=== PATIENT | male | born 1995 | race Asian ===

== ENCOUNTER 2020-11-05 14:06 | Inpatient (IN) ==
--- NOTE | 2020-11-05 14:41 | Emergency Department Note ---
History of Present Illness General Chief complaint: Mental Health Evaluation Stated complaint: MENTAL ILLNESS Time Seen by Provider: 11/05/20 14:20 Source: patient Mode of arrival: ambulatory Limitations: no limitations History of Present Illness Provider complaint: Mental health evaluation Maximum Pain Intensity: 0 This is a 25-year-old male who presents to the ED with a chief complaint of a mental health evaluation. The patient has been here for times in the past month. He was here last night for the same issues. He feels unsafe at home. He is feeling suicidal. He is thinking of either cutting himself or walking out [place] the [place] and getting lost. The patient reports also decreased appetite but otherwise no complaints. He was evaluated by [facility] and referred here. He denies having attempted to hurt himself yet but has suicidal thoughts. No additional complaints at this time. Home Medications Medication Instructions Recorded Confirmed Type hydroxyzine pamoate [Vistaril] 25 mg PO Q8H PRN 5 Days #15 cap 11/05/20 Rx lorazepam [Ativan] 0.5 mg BUCCAL HS PRN 11/05/20 11/05/20 History Allergies Allergy/AdvReac Type Severity Reaction Status Date / Time No Known Allergies Allergy Verified 11/05/20 14:42 Past Med/Surg History Medical History (Updated 11/05/20 @ 14:41 by Hussein Camp DO) GERD (gastroesophageal reflux disease) Surgical History [place] teeth extracted Family History Father Family history of diabetes mellitus Grandmother (Paternal) Family history of diabetes mellitus Grandfather (Paternal) Family history of stomach cancer Other No family history of adverse response to anesthesia Social History Smoking Status: Never smoker Second Hand Exposure: No; Hx Alcohol Use: No Hx Substance Use: No Preferred Language: Romanian Communication Ability: Effective Ship Ceiler Required: No Beliefs That Will Affect Care: None marital status: Single Current Living Situation: Other Current Living Situation Comment: Lives with roommate current occupational status: student Feels Safe at Home: Yes Assistive Devices: Glasses Review of Systems A total of 10 systems reviewed and were otherwise negative Physical Exam Vital Signs Vital Signs - 24 hr 11/05/20 14:08 Temperature 36.4 C L Temperature Source Oral Pulse Rate 89 Respiratory Rate 16 Blood Pressure 139/91 Blood Pressure Mean 107 Pulse Oximetry 100 Oxygen Delivery Method Room Air Sepsis Recent Fever Within 48 Hours No Sepsis New/Unexplained Change in Mental Status N/A Sepsis Action Taken by Nursing No Action Required CONSTITUTIONAL/VITAL SIGNS: Reviewed / noted above. GENERAL: Non-toxic in appearance. INTEGUMENTARY: Warm, dry, and [place]. HEAD: Normocephalic. EYES: without scleral icterus or trauma. ENT/OROPHARYNX: clear and moist. LYMPHADENOPATHY/NECK: Is supple without lymphadenopathy or meningismus. RESPIRATORY: Lungs clear and equal. CARDIOVASCULAR: Regular rate and rhythm. GI/ABDOMEN: Soft and nontender. No organomegaly or pulsatile mass. No rebound or guarding. Normal bowel sounds. EXTREMITIES: Warm and well perfused. BACK: No CVA tenderness. NEUROLOGICAL: Intact without focal deficits. PSYCHIATRIC: normal affect. Exposure suicidal ideation MUSCULOSKELETAL: Normally developed with good muscle tone. TRIAGE NURSING DOCUMENTATION REVIEWED. Medical Decision Making Differential Diagnosis Differential includes toxic ingestions, self-mutilation, suicidal ideation, suicide attempt, depression. Medical Records Attestation: I reviewed the patient's medical records. Home Medications Current Medication List: was personally reviewed by me Laboratory Data Attestation: I reviewed the patient's lab results. Lab Results 11/05/20 11/05/20 11/05/20 Range/Units 14:15 14:27 14:27 Salicylates < 1.7 L (2.8-20) mg/dl Urine Opiates Screen Neg (Neg) Ur Methadone, Qual Neg (Neg) Acetaminophen < 2 L (10-30) ug/ml Urine Barbiturates Neg (Neg) Ur Phencyclidine (PCP) Neg (Neg) U Amphetamin/Meth Scrn Neg (Neg) MDMA (Ecstasy) Screen Neg (Neg) U Benzodiazepines Scrn Neg (Neg) Ur Cocaine Metabolite Neg (Neg) U Marijuana (THC) Screen Neg (Neg) Ethyl Alcohol mg/dL < 3.0 (0-3) mg/dl COVID-19 Eval Order SARS-CoV-2, RNA, NAAT (NEGATIVE) 11/05/20 11/05/20 Range/Units 15:35 15:35 Salicylates (2.8-20) mg/dl Urine Opiates Screen (Neg) Ur Methadone, Qual (Neg) Acetaminophen (10-30) ug/ml Urine Barbiturates (Neg) Ur Phencyclidine (PCP) (Neg) U Amphetamin/Meth Scrn (Neg) MDMA (Ecstasy) Screen (Neg) U Benzodiazepines Scrn (Neg) Ur Cocaine Metabolite (Neg) U Marijuana (THC) Screen (Neg) Ethyl Alcohol mg/dL (0-3) mg/dl COVID-19 Eval Order Covid19 IDNow [facility] SARS-CoV-2, RNA, NAAT NEGATIVE (NEGATIVE) MDM Narrative Patient presents for the fourth time this month and a twice time in 2 days for mental health evaluation. He feels unsafe at home. He feels suicidal. Exam was unremarkable. He has not attempted to hurt himself yet. Laboratory studies have been reviewed. The patient is medically cleared for mental health evaluation and/or admission. He was accepted to 3 [facility]. Impression & Plan Suicidal ideation Discharge Plan Visit Data Chief Complaint: Mental Health Evaluation Stated Complaint: MENTAL ILLNESS ED Provider: Hussein Camp Discharge Problem: Suicidal ideation Forms Stand Alone Forms: [facility], Suicide Prevention Resources Prescriptions Prescriptions: No Action lorazepam [Ativan] 0.5 mg tablet 0.5 mg buccal HS PRN (Reason: panic attack(s)) RF: 0 hydroxyzine pamoate [Vistaril] 25 mg capsule 25 mg PO Q8H PRN (Reason: anxiety) 5 Days Qty: 15 RF: 0 Referrals [facility]: [facility] [Primary Care Provider] -
[2020-11-05 14:46] LABS: Amphetamines+Metham, Urine Neg (Neg); Barbiturates, Urine Neg (Neg); Benzodiazepine, Urine Neg (Neg); Cocaine, Urine Neg (Neg); MDMA (Ecstacy), Urine Neg (Neg); Methadone, Urine Neg (Neg); Opiate, Urine Neg (Neg); Phencyclidine, Urine Neg (Neg)
[2020-11-05 15:01] LABS: Acetaminophen < 2 ug/ml (10-30); Salicylate < 1.7 mg/dl (2.8-20)
--- NOTE | 2020-11-05 15:39 | XRay Report ---
XR chest 1V portable CLINICAL HISTORY: Cough. SHORTNESS OF BREATH COMPARISON STUDY: No previous studies for comparison. FINDINGS: The cardiac and mediastinal contours are normal. There is no evidence of focal pulmonary co nsolidation. There is no evidence of failure. No pleural effusions are visualized.[ IMPRESSION: No active disease in the chest. ACT 112: Negative or not required by law. Electronically signed by: Michael Maloney M.D. 11/05/2020 3:37 PM
[2020-11-05] MEDS ORDERED: ACETAMINOPHEN 325 MG TAB PO PRN (16:43)
[2020-11-05] MEDS ORDERED: SODIUM CHLORIDE 0.65% NA SOLN 45 ML (OCEAN) PRN (16:43)
[2020-11-05] MEDS ORDERED: ALUMINUM/MAGNESIUM SUSP 30 ML UDC PO PRN (16:43)
[2020-11-05] MEDS ORDERED: BISMUTH SUBSALICYLATE LIQD 236 ML PO PRN (16:43)
[2020-11-05] MEDS ORDERED: MAGNESIUM HYDROXIDE SUSP 30 ML UDC PO PRN (16:43)
[2020-11-05] MEDS: hydrOXYzine HCl 25 MG TAB PO PRN (21:55)
[2020-11-06] MEDS: hydrOXYzine HCl 25 MG TAB PO PRN ×2 (04:50→22:29)
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
[2020-11-06] MEDS ORDERED: SERTRALINE HCL 50 MG TABLET PO ONE (10:23)
[2020-11-07] MEDS: hydrOXYzine HCl 25 MG TAB PO PRN (00:39)
[2020-11-07] MEDS: SERTRALINE HCL 50 MG TABLET PO SCH (08:42)
--- NOTE | 2020-11-07 11:46 | Psychiatric Progress Note ---
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 Inpatient treatment is medically necessary due to the severity of symptoms and risk for suicide if discharged. (1) Suicidal ideation: 11/06 -continue voluntary inpatient treatment, every 15 minute checks for safety, encourage group attendance and participation, work on healthy coping skills and discharge safety plan. -Family meeting with parents scheduled for 11/07/2020. -Coordinate with [facility]/[place]. 11/07 -suicidal thoughts worsened after a difficult family meeting. He does feel safe on the unit, and agrees to come to staff if he is having urges to hurt himself. (2) Depression: 11/06 - Reviewed diagnoses and treatment recommendations, including antidepressant and therapy. Discussed a trial of sertraline, reviewed risks, benefits, and side effects. He agreed to a trial, started 25mg today and 50mg tomorrow, will titrate to an effective dose. - Family meeting with parents scheduled for tomorrow. - Refer for outpatient treatment. 11/07 -continue sertraline titration, increased to 50 mg daily today. Provide support after a difficult family meeting. Encourage group attendance and participation. Continue to provide psychoeducation about his diagnosis and treatment recommendations. - Discharge planning: Exploring options for outpatient psychiatry and therapy. (3) Anxiety: 11/06 - Symptoms of JESUS, rule out PTSD. Start SSRI as above, hydroxyzine prn. 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 Chief Complaint "Really bad". Review of Systems Sleep Information Total Hours of Sleep: 5.5 Meal Information Percent Meal Consumed - Breakfast: 100 Percent Meal Consumed - Lunch: 100 Percent Meal Consumed - Dinner: 100 Subjective Subjective Patient was seen & assessed and interval progress reviewed with treatment team. Staff report patient attended groups yesterday and was reporting improved mood, but had a very difficult family meeting with his parents and the certified social workers in health care this morning, after which he reported return of suicidal thoughts. On my assessment, he states that the meeting with his parents was very difficult and that he has decided that they are "both toxic," and that he probably needs to distance himself from both of them. He feels very hurt by their behavior, hopeless that things will ever get better for him, asking if his condition is really treatable, and if it is not, he like to stop all treatment immediately. He says the part of him would like to just leave the hospital and end his life, but part of him still wants to keep living. He describes being in "a very dark space," and not knowing how to get out of it. He says it helps to talk with staff/counselors one-on-one, and feels safe in the hospital. Physical Exam Psychiatric Orientation: alert and cooperative Apperance: appropriately dressed, appropriately groomed and appeared stated age Wearing scrub pants and a sweater. Seated in no acute distress, looking out the window. Eye Contact: good eye contact Motor Behavior: steady gait and station and no abnormal motor movements Speech: normal rate/rhythm/volume of speech Affect: + depressed affect, + constricted affect and mood congruent with affect Mood: + depressed mood Thought Process: goal directed thought process Thought Content: + cognitive distortions Suicidal Thoughts: + reports suicidal thoughts Homicidal Thoughts: denies homicidal thoughts Hallucinations: no auditory hallucinations Cognition: recent memory grossly intact, attention grossly intact and language grossly intact Estimated Intelligence: consistent with education level Insight: + fair insight Judgement: + fair judgement Vital Signs (Past 24 Hours) Last Vital Signs Temp 36.7 C 11/07/20 06:31 Pulse 89 11/07/20 06:32 Resp 16 11/07/20 06:31 BP 131/84 11/07/20 06:32 Pulse Ox 100 11/05/20 14:08 Results & Data ([facility]) Current Inpatient Medications Current Inpatient Medications: Current Inpatient Medications Acetaminophen (Acetaminophen 325 Mg Tab) 650 mg PO Q4H PRN PRN Reason: Headache or Minor Fever Stop: 12/05/20 16:42 Al Hydrox/Mg Hydrox/Simethicone (Aluminum/Magnesium Susp 30 Ml Udc) 30 ml PO Q4H PRN PRN Reason: GI Upset Stop: 12/05/20 16:42 Bismuth Subsalicylate (Bismuth Subsalicylate Liqd 236 Ml) 15 ml PO PRN PRN PRN Reason: Loose Stool Stop: 12/05/20 16:42 Hydroxyzine HCl (Hydroxyzine Hcl 25 Mg Tab) 50 mg PO HSZ PRN PRN Reason: Insomnia Stop: 12/05/20 16:42 Last Admin: 11/07/20 00:39 Dose: 50 mg Documented by: Hydroxyzine HCl (Hydroxyzine Hcl 25 Mg Tab) 25 mg PO Q4H PRN PRN Reason: Anxiety Stop: 12/05/20 16:42 Last Admin: 11/06/20 04:50 Dose: 25 mg Documented by: Magnesium Hydroxide (Magnesium Hydroxide Susp 30 Ml Udc) 30 ml PO DAILY PRN PRN Reason: Constipation Stop: 12/05/20 16:42 Sertraline HCl (Sertraline Hcl 50 Mg Tablet) 50 mg PO QAM SHARON Stop: 12/07/20 08:59 Last Admin: 11/07/20 08:42 Dose: 50 mg Documented by: Sodium Chloride (Sodium Chloride 0.65% Na Soln 45 Ml ([place])) 1 - 2 sprays NA PRN PRN PRN Reason: Nasal Dryness/Congestion Stop: 12/05/20 16:42 Mental Health & Subst Abuse Tx Therapist Name of Therapist: DOMI, one time visit then sent to ER Post Discharge Appointments Primary Care Physician Name Of Family Doctor: SHAHBAZ (1) Depression Depression Type: unspecified Qualified Code(s): F32.9 - Major depressive disorder, single episode, unspecified
[2020-11-08] MEDS: SERTRALINE HCL 50 MG TABLET PO SCH (07:44)
--- NOTE | 2020-11-08 09:39 | Psychiatric Progress Note ---
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 Inpatient treatment is medically necessary due to the severity of symptoms and risk for suicide if discharged. (1) Suicidal ideation: 11/06 -continue voluntary inpatient treatment, every 15 minute checks for safety, encourage group attendance and participation, work on healthy coping skills and discharge safety plan. -Family meeting with parents scheduled for 11/07/2020. -Coordinate with [facility]/[place]. 11/07 -suicidal thoughts worsened after a difficult family meeting. He does feel safe on the unit, and agrees to come to staff if he is having urges to hurt himself. 11/08 - Pt denies SI today, but he continues to be emotionally reactive which increased concern for destabilization - Continue to monitor mood and SI - Will encourage a support meeting and completion of a safety plan (2) Depression: 11/06 - Reviewed diagnoses and treatment recommendations, including antidepressant and therapy. Discussed a trial of sertraline, reviewed risks, benefits, and side effects. He agreed to a trial, started 25mg today and 50mg tomorrow, will titrate to an effective dose. - Family meeting with parents scheduled for tomorrow. - Refer for outpatient treatment. 11/07 -continue sertraline titration, increased to 50 mg daily today. Provide support after a difficult family meeting. Encourage group attendance and participation. Continue to provide psychoeducation about his diagnosis and treatment recommendations. - Discharge planning: Exploring options for outpatient psychiatry and therapy. 11/08 - Titrating sertraline to 100mg daily starting tomorrow morning - continue to have hydroxyzine available as needed for anxiety. - Pt has been reaching out to local supports, attempting to set boundaries with parents - Pt denies SI today, but continues to be rather emotionally reactive (3) Anxiety: 11/06 - Symptoms of JESUS, rule out PTSD. Start SSRI as above, hydroxyzine prn. 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 Chief Complaint "Um, I feel good about myself. I have been reaching out to people." Review of Systems Notes Constitutional: denied Cardiovascular: denied Respiratory: denied Gastrointestinal: reports mild nausea Neurological: denied Psychiatric: denies symptoms other than stated above Total of at least 10 systems reviewed, pertinent positives as above and in HPI. Sleep Information Total Hours of Sleep: 5.5 Meal Information Percent Meal Consumed - Breakfast: 100 Percent Meal Consumed - Lunch: 100 Percent Meal Consumed - Dinner: 100 Subjective Subjective Patient was seen & assessed and interval progress reviewed with nursing and social work. Staff report the patient has been participating in group programming and seems to be benefitting greatly from treatment. He did have a difficult family meeting with his parents yesterday, and became acute suicidal due to poor relationship with his parents. Pt was able to process with staff and was reassured. He was encouraged to reach out to local friends/supports. He was reportedly receiving positive responses last evening. Pt was seen today to assess progress since admission. The patient admits "I feel good about myself. I have been reaching out to people." Pt admits he is happy with the positive responses he has received from friends but is also worried about being seen as a burden. We discussed how patient thought he might respond if the roles were reversed. He admits that he would reach out to his friends and be supportive of them. Pt states that he is aware he will need to set boundaries with his parents and is worried about how to do this. We discussed the level of interaction that he feels is appropriate at this time and he states "I think it definitely needs to be very limited. I need to focus on me and my goals." We reviewed some simple phrases the patient could use to politely change conversation topics or to end a phone interaction if he felt he needed to. Pt states that he has not had suicidal ideation thus far today, but is worried that they might come back. He does hope to keep close track of his mood and SI on a daily basis "so I know when I need to call 911 or call a friend or just do something to take my mind off of it." Pt does feel that he is getting better, but is not yet able to contract for safety outside of the hospital setting. He is agreeable with titrating his dose of sertraline to 100mg tomorrow morning. He denied other needs or concerns today. Physical Exam Psychiatric Orientation: alert, oriented x 3 and cooperative Apperance: appropriately dressed, appropriately groomed and appeared stated age Eye Contact: good eye contact Motor Behavior: steady gait and station and no abnormal motor movements Speech: normal rate/rhythm/volume of speech Affect: + depressed affect and mood congruent with affect Mood: + depressed mood (but admits mood is improved from yesterday, much worse after family meeting) Thought Process: goal directed thought process, clear/coherent thought process and thought association intact Thought Content: reality based without delusions; no hopelessness Suicidal Thoughts: denies suicidal thoughts and denies suicidal intent Pt admits to strong SI yesterday following the family meeting - denies SI so far today, but continues to be emotionally reactive Homicidal Thoughts: denies homicidal thoughts Hallucinations: no auditory hallucinations and no visual hallucinations Cognition: attention grossly intact and language grossly intact Estimated Intelligence: consistent with education level Insight: + fair insight Judgement: + fair judgement Vital Signs (Past 24 Hours) Last Vital Signs Temp 36.8 C 11/08/20 06:43 Pulse 83 11/08/20 06:44 Resp 16 11/08/20 06:43 BP 121/77 11/08/20 06:44 Pulse Ox 100 11/05/20 14:08 Results & Data ([facility]) Current Inpatient Medications Current Inpatient Medications: Current Inpatient Medications Acetaminophen (Acetaminophen 325 Mg Tab) 650 mg PO Q4H PRN PRN Reason: Headache or Minor Fever Stop: 12/05/20 16:42 Last Admin: 11/08/20 07:46 Dose: 650 mg Documented by: Al Hydrox/Mg Hydrox/Simethicone (Aluminum/Magnesium Susp 30 Ml Udc) 30 ml PO Q4H PRN PRN Reason: GI Upset Stop: 12/05/20 16:42 Bismuth Subsalicylate (Bismuth Subsalicylate Liqd 236 Ml) 15 ml PO PRN PRN PRN Reason: Loose Stool Stop: 12/05/20 16:42 Hydroxyzine HCl (Hydroxyzine Hcl 25 Mg Tab) 50 mg PO HSZ PRN PRN Reason: Insomnia Stop: 12/05/20 16:42 Last Admin: 11/07/20 00:39 Dose: 50 mg Documented by: Hydroxyzine HCl (Hydroxyzine Hcl 25 Mg Tab) 25 mg PO Q4H PRN PRN Reason: Anxiety Stop: 12/05/20 16:42 Last Admin: 11/06/20 04:50 Dose: 25 mg Documented by: Magnesium Hydroxide (Magnesium Hydroxide Susp 30 Ml Udc) 30 ml PO DAILY PRN PRN Reason: Constipation Stop: 12/05/20 16:42 Sertraline HCl (Sertraline Hcl 50 Mg Tablet) 50 mg PO QAM SHARON Stop: 12/07/20 08:59 Last Admin: 11/08/20 07:44 Dose: 50 mg Documented by: Sodium Chloride (Sodium Chloride 0.65% Na Soln 45 Ml ([place])) 1 - 2 sprays NA PRN PRN PRN Reason: Nasal Dryness/Congestion Stop: 12/05/20 16:42 Mental Health & Subst Abuse Tx Psychiatrist Name of Psychiatrist: DOMI Psychiatrist's Psychiatric Appointment Comment: Virtual - will email you with directions to the link Therapist Name of Therapist: [facility] Therapist's Therapy Appointment Comment: Virtual - will email you with directions to the link Post Discharge Appointments Primary Care Physician Name Of Family Doctor: [facility] Primary Care Time of Appointment with PCP: Please follow up as needed Provider Appointment Comment: [facility] Contact Information Discharge Discharge Address: [address] [place] [address], [address] [place] [address] (1) Depression Depression Type: unspecified Qualified Code(s): F32.9 - Major depressive disorder, single episode, unspecified
[2020-11-09] MEDS: SERTRALINE HCL 100 MG TABLET PO SCH (08:36)
--- NOTE | 2020-11-09 17:47 | Psychiatric Progress Note ---
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 Inpatient treatment is medically necessary due to the severity of symptoms and risk for suicide if discharged. The patient is surprisingly adept at insight, and I believe would do quite well with a cognitive behavioral therapist. As noted elsewhere in today's progress note, the patient was given an example of a "thought distortion" that might be challenged in cognitive behavioral therapy. The example of a possible distortion was, "Because my mother is a narcissist, my mother does not love me." The patient immediately replied, "Or, because my mother is a narcissist and does not love me I should . That is a distortion also, is not that?" We were able to discuss the concept of felt like ornaments, the psychodynamic variables present in narcissistic individuals, as well as the fact that persons with certain pathologic character structures are still perfectly capable of love, but within the confines of certain limits. He is able to be redirected to focus on ways that he might accept his mother's limitations, and his father's limitations, and still go on to have a happy, fulfilling life. The patient also does seem to be concerned about his academic performance. He is in his last semester and essentially only has to defend his dissertation before he can be granted a PhD at [employer]. He told me with some pleasure that his department has already indicated that they will work with him to give him an extension on his stipend and on his student visa. (1) Suicidal ideation: 11/06 -continue voluntary inpatient treatment, every 15 minute checks for safety, encourage group attendance and participation, work on healthy coping skills and discharge safety plan. -Family meeting with parents scheduled for 11/07/2020. -Coordinate with [facility]University. 11/07 -suicidal thoughts worsened after a difficult family meeting. He does feel safe on the unit, and agrees to come to staff if he is having urges to hurt himself. 11/08 - Pt denies SI today, but he continues to be emotionally reactive which increased concern for destabilization - Continue to monitor mood and SI - Will encourage a support meeting and completion of a safety plan 11/09 -The patient continues to say that he is having thoughts of suicide. He notes that he is able to contract for safety in the hospital, but is concerned that he will be safe at the present time if he leaves the hospital because of ongoing depression and ongoing emotional pain associated with issues specific to his relationship with his parents. -The patient needs greater and broader emotional support. It is clear that he finds the hospital to be a source of support, and today's encounter focused largely on how he can see his current situation as a circumscribed, "bedtime," and come to realize, he either intellectually or emotionally, that things will get better and that he will look back on this time and wonder why he reacted in the way he has. (2) Depression: 11/06 - Reviewed diagnoses and treatment recommendations, including antidepressant and therapy. Discussed a trial of sertraline, reviewed risks, aylin efits, and side effects. He agreed to a trial, started 25mg today and 50mg tomorrow, will titrate to an effective dose. - Family meeting with parents scheduled for tomorrow. - Refer for outpatient treatment. 11/07 -continue sertraline titration, increased to 50 mg daily today. Provide support after a difficult family meeting. Encourage group attendance and participation. Continue to provide psychoeducation about his diagnosis and treatment recommendations. - Discharge planning: Exploring options for outpatient psychiatry and therapy. 11/08 - Titrating sertraline to 100mg daily starting tomorrow morning - continue to have hydroxyzine available as needed for anxiety. - Pt has been reaching out to local supports, attempting to set boundaries with parents - Pt denies SI today, but continues to be rather emotionally reactive 11/09 -Patient complained of feeling depressed today and mentioned that he still does not feel safe to leave the hospital without a recurrence of his suicidal tho ughts and active risk of suicidality outside the hospital. However, his affect brightened considerably during today's encounter and he is now more focused on recovery and on his future. For example, he is discussing what sort of marriage he would like and what kind of father he would like to be "down the road." The patient also talks about ways that he might manage the "toxicity" of his relatio nship with his parents, and he has said is the goal the hope of living in the [facility] and having his career here. -Patient indicates that he is tolerating Zoloft well. Present on Admission?: Yes (3) Anxiety: 2/16 - Symptoms of JESUS, rule out PTSD. Start SSRI as above, hydroxyzine prn. Present on Admission?: Yes Inventory Assets Strengths: Intelligent. Insightful. Would make an excellent candidate for insight oriented psychotherapy as well as cognitive behavioral therapies. Pleasant and winning personality. Motivated to recovery. Needs: Improved self-esteem. Further insight development. And improved social network locally. Resolution of suicidality. Improvement in depressed mood. Risk Factors Assessment History of depression. Suicidal thoughts. Somewhat lacking social supports. Male: Yes : No Do You Have Access To A Gun?: No Health Problems: No Mental Health Diagnoses: Yes Substance Use Disorders: No Previous Attempt: No Previous Attempt; Highly Lethal: No Family History of Suicide: No Previous Psychiatric Hospitalization: No Hopelessness: Yes Smoker: No Protective Factors Assessment Amish Beliefs: No : No Responsible for Young Children: No Employed: No Stable Relationships: No Supportive Family: No Good Rapport with Provider: No (The patient quickly developed a good rapport with the undersigned today.) Absence of Any Risk Factors Above: No Interval History Identifying Information THERESA FRAUSTO is a 25-year-old 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 Chief Complaint "[]". Review of Systems Sleep Information Total Hours of Sleep: 4.75 Sleep Comments: pt BABATUNDE @0445 and thereafter. pt on q-15 minute checks Meal Information Percent Meal Consumed - Breakfast: 100 Percent Meal Consumed - Lunch: 100 Percent Meal Consumed - Dinner: 100 Subjective Subjective Patient was seen & assessed and interval progress reviewed with treatment team. I met individually with the patient in order to assess his current mental status; evaluate his response to treatment; coordinate any necessary changes in the patient's treatment regimen together with the patient; and address questions, issues and concerns that may arise. The patient began by telling me that he feels "safe" in the hospital," but does not believe that he is safe to leave the hospital because of ongoing suicidal thoughts and "emotional pain" associated with his relationship with his parents. He explains that his father recently told him that the patient's mother "does not love [him]." The patient describes his mother as "a narcissist," and suggest that his father may be somewhat of a masochist --although he does not exactly use that word. He reports that the family dynamic is that the patient's father's mother was also narcissistic and verbally abusive to him, and he, the father, made the mistake of marrying a woman who had a similar personality construct to his own mother. At the same time, the patient believes that he was groomed by his mother to become very messed with her and to live in fear of being rejected by her. He says that over the years his mother has repeatedly said things such as "nobody will ever love you the way I love you," and "you will never have a relationship with anyone that is important as you relationship with me." At the same time, the patient's mother is often verbally dismissive, with holding, and, the patient view, uses her power over him to control his behavior. The patient says that despite insight into the "toxic" nature of his parents' relationship with each other, and with the patient, he says that his emotions have not necessarily followed his head and that his insight is not really helping with what he refers to as his "heart pain" associated with recognizing that neither of his parents love him in the way that he would like to be loved; i.e. for himself, rather than as a phallic ornament. The patient tells me that had never heard of cognitive behavioral therapy, and when I described to him and used as an example, "my mother does not love me" as an example of a possible distortion that would be challenging cognitive behavioral therapy, he immediately said, "not just that my mother does not love me, but my belief that I should if my mother does not love me. Is that right?" I advised the patient that I think that he would be an excellent candidate for cognitive behavioral therapy and I talked to him about the need to avoid self-harm while passing through what is quite understandably a very difficult time for himself. I tried to frame this as "a bad time" that has its boundaries and will get better. He talked about how hurtful it was to realize that his parents may not love him in the way that he would like to be loved, and I used the expression "the best revenge is success." The patient understood and we spent a fair amount of time discussing what success would mean for him. He quickly said, "to break the pattern so that I do not a narcissist. I have noticed that the women who seem interested in me often seek to control and manipulate me, and so part of what I need to do is find a relationship with a woman who will be my equal partner." The patient also said that a goal for him that he thinks will be healing is to and become a father himself so that he can break the cycle that was part of his parents marriage and interaction with their son, i.e. the patient. Physical Exam Psychiatric Orientation: alert, oriented x 3 and cooperative Apperance: appropriately dressed, appropriately groomed and appeared stated age Eye Contact: + fair eye contact Motor Behavior: steady gait and station Speech: normal rate/rhythm/volume of speech The patient's affect was initially depressed, but brightened considerably during the course of today's encounter. Mood: + depressed mood However, the patient reports that his mood brightened considerably during the encounter. Thought Process: goal directed thought process, linear/logical thought process and clear/coherent thought process Thought Content: reality based without delusions Suicidal Thoughts: + reports suicidal thoughts Patient reports that he has ongoing thoughts of suicide, but contracts for safety on the unit. He says that he does not believe that he can be safe outside of the hospital because of ongoing depression and suicidality. Homicidal Thoughts: denies homicidal thoughts Hallucinations: no auditory hallucinations and no visual hallucinations Cognition: recent memory grossly intact, remote memory grossly intact, attention grossly intact and language grossly intact Estimated Intelligence: + above average estimated intelligence The patient is command of Greek is excellent. He understand it he him and is able to correctly perform interpretation of proverbs that he has never heard before. He also is able to grasp abstract concepts assiduously Insight: good insight Judgement: + fair judgement Vital Signs (Past 24 Hours) Last Vital Signs Temp 36.6 C 11/09/20 06:50 Pulse 78 11/09/20 06:50 Resp 16 11/09/20 06:50 BP 126/78 11/09/20 06:50 Pulse Ox 100 11/05/20 14:08 Results & Data ([facility]) Current Inpatient Medications Current Inpatient Medications: Current Inpatient Medications Acetaminophen (Acetaminophen 325 Mg Tab) 650 mg PO Q4H PRN PRN Reason: Headache or Minor Fever Stop: 12/05/20 16:42 Last Admin: 11/08/20 07:46 Dose: 650 mg Documented by: Al Hydrox/Mg Hydrox/Simethicone (Aluminum/Magnesium Susp 30 Ml Udc) 30 ml PO Q4H PRN PRN Reason: GI Upset Stop: 12/05/20 16:42 Bismuth Subsalicylate (Bismuth Subsalicylate Liqd 236 Ml) 15 ml PO PRN PRN PRN Reason: Loose Stool Stop: 12/05/20 16:42 Hydroxyzine HCl (Hydroxyzine Hcl 25 Mg Tab) 50 mg PO HSZ PRN PRN Reason: Insomnia Stop: 12/05/20 16:42 Last Admin: 11/07/20 00:39 Dose: 50 mg Documented by: Hydroxyzine HCl (Hydroxyzine Hcl 25 Mg Tab) 25 mg PO Q4H PRN PRN Reason: Anxiety Stop: 12/05/20 16:42 Last Admin: 11/06/20 04:50 Dose: 25 mg Documented by: Magnesium Hydroxide (Magnesium Hydroxide Susp 30 Ml Udc) 30 ml PO DAILY PRN PRN Reason: Constipation Stop: 12/05/20 16:42 Sertraline HCl (Sertraline Hcl 100 Mg Tablet) 100 mg PO QAM SHARON Stop: 12/09/20 08:59 Last Admin: 11/09/20 08:36 Dose: 100 mg Documented by: Sodium Chloride (Sodium Chloride 0.65% Na Soln 45 Ml ([place])) 1 - 2 sprays NA PRN PRN PRN Reason: Nasal Dryness/Congestion Stop: 12/05/20 16:42 Mental Health & Subst Abuse Tx Psychiatrist Name of Psychiatrist: DOMI Alfaro Psychiatrist's Date of Appointment with Psychiatrist: 11/15/20 Time of Appointment with Psychiatrist: 1:15 pm Psychiatric Appointment Comment: Virtual - will email you with directions to the link Therapist Name of Therapist: Jaime Meehan Therapist's Date of Therapist Appointment: 11/13/20 Time of Therapist Appointment: 3:00 p.m. Therapy Appointment Comment: Virtual - will email you with directions to the link Post Discharge Appointments Primary Care Physician Name Of Family Doctor: [facility] Time of Appointment with PCP: Please follow up as needed Provider Appointment Comment: [facility] Contact Information Discharge Discharge Address: [address] [place] [address], [address], [place] [id number] (1) Depression Depression Type: unspecified Qualified Code(s): F32.9 - Major depressive dis order, single episode, unspecified
[2020-11-10] MEDS: SERTRALINE HCL 100 MG TABLET PO SCH (08:07)
--- NOTE | 2020-11-10 09:50 | Psychiatric Progress Note ---
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 Inpatient treatment is medically necessary due to the severity of symptoms and risk for suicide if discharged. The patient is surprisingly adept at insight, and I believe would do quite well with a cognitive behavioral therapist. As noted elsewhere in today's progress note, the patient was given an example of a "thought distortion" that might be challenged in cognitive behavioral therapy. The example of a possible distortion was, "Because my mother is a narcissist, my mother does not love me." The patient immediately replied, "Or, because my mother is a narcissist and does not love me I should . That is a distortion also, is not that?" We were able to discuss the concept of felt like ornaments, the psychodynamic variables present in narcissistic individuals, as well as the fact that persons with certain pathologic character structures are still perfectly capable of love, but within the confines of certain limits. He is able to be redirected to focus on ways that he might accept his mother's limitations, and his father's limitations, and still go on to have a happy, fulfilling life. The patient also does seem to be concerned about his academic performance. He is in his last semester and essentially only has to defend his dissertation before he can be granted a PhD at [employer]. He told me with some pleasure that his department has already indicated that they will work with him to give him an extension on his stipend and on his student visa. Reviewed 11/10. Improving. (1) Suicidal ideation: 11/06 -continue voluntary inpatient treatment, every 15 minute checks for safety, encourage group attendance and participation, work on healthy coping skills and discharge safety plan. -Family meeting with parents scheduled for 11/07/2020. -[facility]ordinate with [facility]. 11/07 -suicidal thoughts worsened after a difficult family meeting. He does feel safe on the unit, and agrees to come to staff if he is having urges to hurt himself. 11/08 - Pt denies SI today, but he continues to be emotionally reactive which increased concern for destabilization - Continue to monitor mood and SI - Will encourage a support meeting and completion of a safety plan 11/09 -The patient continues to say that he is having thoughts of suicide. He notes that he is able to contract for safety in the hospital, but is concerned that he will be safe at the present time if he leaves the hospital because of ongoing depression and ongoing emotional pain associated with issues specific to his relationship with his parents. -The patient needs greater and broader emotional support. It is clear that he finds the hospital to be a source of support, and today's encounter focused largely on how he can see his current situation as a circumscribed, "bedtime," and come to realize, he either intellectually or emotionally, that things will get better and that he will look back on this time and wonder why he reacted in the way he has. 11/10--discussed chronic nature of thoughts and how to manage, need for safety plan and ongoing therapy to help with distress tolerance. (2) Depression: 11/06 - Reviewed diagnoses and treatment recommendations, including antidepressant and therapy. Discussed a trial of sertraline, reviewed risks, benefits, and side effects. He agreed to a trial, started 25mg today and 50mg tomorrow, will titrate to an effective dose. - Family meeting with parents scheduled for tomorrow. - Refer for outpatient treatment. 11/07 -continue sertraline titration, increased to 50 mg daily today. Provide support after a difficult family meeting. Encourage group attendance and participation. Continue to provide psychoeducation about his diagnosis and treatment recommendations. - Discharge planning: Exploring options for outpatient psychiatry and therapy. 11/08 - Titrating sertraline to 100mg daily starting tomorrow morning - continue to have hydroxyzine available as needed for anxiety. - Pt has been reaching out to local supports, attempting to set boundaries with parents - Pt denies SI today, but continues to be rather emotionally reactive 11/09 -Patient complained of feeling depressed today and mentioned that he still does not feel safe to leave the hospital without a recurrence of his suicidal thoughts and active risk of suicidality outside the hospital. However, his affect brightened considerably during today's encounter and he is now more focused on recovery and on his future. For example, he is discussing what sort of marriage he would like and what kind of father he would like to be "down the road." The patient also talks about ways that he might manage the "toxicity" of his relationship with his parents, and he has said is the goal the hope of living in the [place] and having his career here. -Patient indicates that he is tolerating Zoloft well. 11/10--reviewed (3) Anxiety: 11/06 - Symptoms of JESUS, rule out PTSD. Start SSRI as above, hydroxyzine prn. 11/10--reviewed. Inventory Assets Strengths: Intelligent. Insightful. Would make an excellent candidate for insight oriented psychotherapy as well as cognitive behavioral therapies. Pleasant and winning personality. Motivated to recovery. Needs: Improved self-esteem. Further insight development. And improved social network locally. Resolution of suicidality. Improvement in depressed mood. Risk Factors Assessment Male: Yes : No Do You Have Access To A Gun?: No Health Problems: No Mental Health Diagnoses: Yes Substance Use Disorders: No Previous Attempt: No Previous Attempt; Highly Lethal: No Family History of Suicide: No Previous Psychiatric Hospitalization: No Hopelessness: Yes Smoker: No Protective Factors Assessment Anglican Beliefs: No : No Responsible for Young Children: No Employed: No Stable Relationships: No Supportive Family: No Good Rapport with Provider: No (The patient quickly developed a good rapport with the undersigned today.) Absence of Any Risk Factors Above: No Interval History Identifying Information THERESA FRAUSTO is a 25-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 Reviewed. Chief Complaint "I'm stilling having lows at times with SI but don't believe I'd act on it". Review of Systems Sleep Information Total Hours of Sleep: 5.5 Meal Information Percent Meal Consumed - Breakfast: 100 Percent Meal Consumed - Lunch: 100 Percent Meal Consumed - Dinner: 100 Subjective Subjective Patient was seen & assessed and interval progress reviewed with nursing and social work. No acute issues overnight. States he is tolerating the medication. Still working on safety plan, identifies support from cohort and advisors. He is writing his dissertation for February so plans to go back to work right away. Talked about working outside of the apartment for better routine/less isolation. Still focussed on parent's personality "disorders" and how they affected his self-concept. Physical Exam Psychiatric Orientation: alert, oriented x 3 and cooperative Apperance: appropriately dressed, appropriately groomed and appeared stated age Eye Contact: good eye contact and + fair eye contact Motor Behavior: steady gait and station and no abnormal motor movements Speech: normal rate/rhythm/volume of speech Affect: mood congruent with affect Mood: + depressed mood Thought Process: goal directed thought process and thought association intact Thought Content: reality based without delusions Suicidal Thoughts: denies suicidal intent; + reports suicidal thoughts Homicidal Thoughts: denies homicidal thoughts Hallucinations: no auditory hallucinations and no visual hallucinations Cognition: recent memory grossly intact, remote memory grossly intact, attention grossly intact and language grossly intact Estimated Intelligence: consistent with education level and + above average estimated intelligence Insight: good insight and + fair insight Judgement: + fair judgement Vital Signs (Past 24 Hours) Last Vital Signs Temp 36.7 C 11/10/20 06:24 Pulse 78 11/10/20 06:24 Resp 17 11/10/20 06:24 BP 116/74 11/10/20 06:24 Pulse Ox 100 11/05/20 14:08 Results & Data ([facility]) Current Inpatient Medications Current Inpatient Medications: Current Inpatient Medications Acetaminophen (Acetaminophen 325 Mg Tab) 650 mg PO Q4H PRN PRN Reason: Headache or Minor Fever Stop: 12/05/20 16:42 Last Admin: 11/08/20 07:46 Dose: 650 mg Documented by: Al Hydrox/Mg Hydrox/Simethicone (Aluminum/Magnesium Susp 30 Ml Udc) 30 ml PO Q4H PRN PRN Reason: GI Upset Stop: 12/05/20 16:42 Bismuth Subsalicylate (Bismuth Subsalicylate Liqd 236 Ml) 15 ml PO PRN PRN PRN Reason: Loose Stool Stop: 12/05/20 16:42 Hydroxyzine HCl (Hydroxyzine Hcl 25 Mg Tab) 50 mg PO HSZ PRN PRN Reason: Insomnia Stop: 12/05/20 16:42 Last Admin: 11/07/20 00:39 Dose: 50 mg Documented by: Hydroxyzine HCl (Hydroxyzine Hcl 25 Mg Tab) 25 mg PO Q4H PRN PRN Reason: Anxiety Stop: 12/05/20 16:42 Last Admin: 11/06/20 04:50 Dose: 25 mg Documented by: Magnesium Hydroxide (Magnesium Hydroxide Susp 30 Ml Udc) 30 ml PO DAILY PRN PRN Reason: Constipation Stop: 12/05/20 16:42 Sertraline HCl (Sertraline Hcl 100 Mg Tablet) 100 mg PO QAM SHARON Stop: 12/09/20 08:59 Last Admin: 11/10/20 08:07 Dose: 100 mg Documented by: Sodium Chloride (Sodium Chloride 0.65% Na Soln 45 Ml ([place])) 1 - 2 sprays NA PRN PRN PRN Reason: Nasal Dryness/Congestion Stop: 12/05/20 16:42 Mental Health & Subst Abuse Tx Psychiatrist Name of Psychiatrist: DOMI Alfaro Psychiatrist's Date of Appointment with Psychiatrist: 11/15/20 Time of Appointment with Psychiatrist: 1:15 pm Psychiatric Appointment Comment: Virtual - will email you with directions to the link Therapist Name of Therapist: [facility] Therapist's Date of Therapist Appointment: 11/13/20 Time of Therapist Appointment: 3:00 p.m. Therapy Appointment Comment: Virtual - will email you with directions to the link Post Discharge Appointments Primary Care Physician Name Of Family Doctor: [facility] Primary Care Time of Appointment with PCP: Please follow up as needed Provider Appointment Comment: [facility] Contact Information Discharge Discharge [address]: [address] [place] [address], [address] [address] (1) Depression Depression Type: unspecified Qualified Code(s): F32.9 - Major depressive disorder, single episode, unspecified
[2020-11-11] MEDS: SERTRALINE HCL 100 MG TABLET PO SCH (08:23)
--- NOTE | 2020-11-11 12:25 | Psychiatric Progress Note ---
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 Inpatient treatment is medically necessary due to the severity of symptoms and risk for suicide if discharged. The patient is surprisingly adept at insight, and I believe would do quite well with a cognitive behavioral therapist. As noted elsewhere in today's progress note, the patient was given an example of a "thought distortion" that might be challenged in cognitive behavioral therapy. The example of a possible distortion was, "Because my mother is a narcissist, my mother does not love me." The patient immediately replied, "Or, because my mother is a narcissist and does not love me I should . That is a distortion also, is not that?" We were able to discuss the concept of felt like ornaments, the psychodynamic variables present in narcissistic individuals, as well as the fact that persons with certain pathologic character structures are still perfectly capable of love, but within the confines of certain limits. He is able to be redirected to focus on ways that he might accept his mother's limitations, and his father's limitations, and still go on to have a happy, fulfilling life. The patient also does seem to be concerned about his academic performance. He is in his last semester and essentially only has to defend his dissertation before he can be granted a PhD at [employer]. He told me with some pleasure that his department has already indicated that they will work with him to give him an extension on his stipend and on his student visa. 11/11--improving Inventory Assets Strengths: Intelligent. Insightful. Would make an excellent candidate for insight oriented psychotherapy as well as cognitive behavioral therapies. Pleasant and winning personality. Motivated to recovery. Needs: Improved self-esteem. Further insight development. And improved social network locally. Resolution of suicidality. Improvement in depressed mood. Risk Factors Assessment Male: Yes : No Do You Have Access To A Gun?: No Health Problems: No Mental Health Diagnoses: Yes Substance Use Disorders: No Previous Attempt: No Previous Attempt; Highly Lethal: No Family History of Suicide: No Previous Psychiatric Hospitalization: No Hopelessness: Yes Smoker: No Protective Factors Assessment Worship Beliefs: No : No Responsible for Young Children: No Employed: No Stable Relationships: No Supportive Family: No Good Rapport with Provider: No (The patient quickly developed a good rapport with the undersigned today.) Absence of Any Risk Factors Above: No Interval History Identifying Information THERESA FRAUSTO is a 25-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 Reviewed. Chief Complaint "I still get suicidal but I don't want to harm self, no plan, I just wish I wouldn't have thoughts about my parents". Review of Systems Sleep Information Total Hours of Sleep: 7 Meal Information Percent Meal Consumed - Breakfast: 100 Percent Meal Consumed - Lunch: 100 Percent Meal Consumed - Dinner: 100 Subjective Subjective Patient was seen & assessed and interval progress reviewed with nursing and social work. Reviewed with patient that culturally here just wanting thoughts to stop and not having to deal with it is different than actively wanting to and he voiced understanding. He just wishes he wouldn't get down in evening and reviewed things he can do at home like go for a walk or drive. No further diarrhea. Physical Exam Psychiatric Orientation: alert and cooperative Apperance: appropriately groomed Eye Contact: good eye contact Speech: normal rate/rhythm/volume of speech Affect: euthymic affect Mood: + anxious mood Thought Process: linear/logical thought process Thought Content: reality based without delusions Suicidal Thoughts: denies suicidal thoughts Homicidal Thoughts: denies homicidal thoughts Hallucinations: no auditory hallucinations and no visual hallucinations Insight: + fair insight Judgement: + fair judgement Vital Signs (Past 24 Hours) Last Vital Signs Temp 36.7 C 11/11/20 06:32 Pulse 83 11/11/20 06:32 Resp 17 11/11/20 06:32 BP 129/75 11/11/20 06:32 Pulse Ox 100 11/05/20 14:08 Results & Data ([facility]) Current Inpatient Medications Current Inpatient Medications: Current Inpatient Medications Acetaminophen (Acetaminophen 325 Mg Tab) 650 mg PO Q4H PRN PRN Reason: Headache or Minor Fever Stop: 12/05/20 16:42 Last Admin: 11/08/20 07:46 Dose: 650 mg Documented by: Al Hydrox/Mg Hydrox/Simethicone (Aluminum/Magnesium Susp 30 Ml Udc) 30 ml PO Q4H PRN PRN Reason: GI Upset Stop: 12/05/20 16:42 Bismuth Subsalicylate (Bismuth Subsalicylate Liqd 236 Ml) 15 ml PO PRN PRN PRN Reason: Loose Stool Stop: 12/05/20 16:42 Hydroxyzine HCl (Hydroxyzine Hcl 25 Mg Tab) 50 mg PO HSZ PRN PRN Reason: Insomnia Stop: 12/05/20 16:42 Last Admin: 11/07/20 00:39 Dose: 50 mg Documented by: Hydroxyzine HCl (Hydroxyzine Hcl 25 Mg Tab) 25 mg PO Q4H PRN PRN Reason: Anxiety Stop: 12/05/20 16:42 Last Admin: 11/06/20 04:50 Dose: 25 mg Documented by: Magnesium Hydroxide (Magnesium Hydroxide Susp 30 Ml Udc) 30 ml PO DAILY PRN PRN Reason: Constipation Stop: 12/05/20 16:42 Sertraline HCl (Sertraline Hcl 100 Mg Tablet) 100 mg PO QAM SHARON Stop: 12/09/20 08:59 Last Admin: 11/11/20 08:23 Dose: 100 mg Documented by: Sodium Chloride (Sodium Chloride 0.65% Na Soln 45 Ml ([place])) 1 - 2 sprays NA PRN PRN PRN Reason: Nasal Dryness/Congestion Stop: 12/05/20 16:42 Mental Health & Subst Abuse Tx Psychiatrist Name of Psychiatrist: DOMI Alfaro Psychiatrist's Date of Appointment with Psychiatrist: 11/15/20 Time of Appointment with Psychiatrist: 1:15 pm Psychiatric Appointment Comment: Virtual - will email you with directions to the link Therapist Name of Therapist: [facility] Therapist's Date of Therapist Appointment: 11/13/20 Time of Therapist Appointment: 3:00 p.m. Therapy Appointment Comment: Virtual - will email you with directions to the link Post Discharge Appointments Primary Care Physician Name Of Family Doctor: [facility] Primary Care Time of Appointment with PCP: Please follow up as needed Provider Appointment Comment: [facility] Contact Information Discharge Discharge Address: [address], [address], [place] [address]
[2020-11-12] MEDS: SERTRALINE HCL 100 MG TABLET PO SCH (08:52)
--- NOTE | 2020-11-12 09:14 | Discharge Summary ---
Date of Service November 12, 2020 History of Present Illness per admitting clinician: Patient presented to the ER 4 times in 8 days for anxiety, depression and SI. He was sent to the ER by [facility] yesterday after he presented there with suicidal thoughts and multiple plans (use a knife, disappear into the forest, or hang himself). He also talked about driving to a heather and jumping off. He said he did not feel safe alone, and was thinking of contacting his parents to come to the [place] and see him for the last time. He reported family discord as the primary trigger, stating his father told him that his mother was a narcissist and will never love him. He has been ruminating on this, with worsening mood over the past couple of weeks. Admission labs were normal, and he agreed to voluntary hospitalization. He called his parents to notify them he had been admitted. He requested "a tranquilizer" and received hydroxyzine last evening for anxiety and sleep. On my assessment, he reports mood and anxiety have been worsening for the past week, and he did not feel safe at home. 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 He worries excessively about everything, ruminates, feels on edge and unable to relax. He has high expectations of himself as does his mother, and worries about what others think of him. He has had 3 panic attacks, the first a couple of weeks ago, and had 2 yesterday. He reports having "2 mental breakdowns" last fall, where he "felt unable to set boundaries with my mom." He would like to be able to have some space from her, as she expects him to call her daily at a certain time, and talk for 30 minutes, and provide emotional support for her. He loves her and wants her to be happy, but doesn't feel able to meet her emotional needs. His parents fight a lot since he was a childhood and he thinks they both deal with psychological issues. Describes his mother is narcissistic and self centered, and father depressed and anxious, isolates himself at times. He has been doubting if his mother really loves him, "if she's a narcissist, can she really love me?" He was also reading "some dark fiction" about a revolution in [place] where a lot of people committed suicide, which worsened mood. He has been ruminating on his mother and whether or not she loves him, why she puts her needs over his. He feels mood is depressed, decreasing interest/enjoyment, and negative thoughts about himself. He has had worsening sleep and appetite is decreased, but denies weight loss. Although he feels hopeless at times, part of him wants to live and thinks he has something to offer. Focus has been impaired, and suicidal thoughts increased yesterday and he did not feel safe outside the hospital. He actually threw away knives at home so that he wouldn't have easy access to them. He denies HI, AVH, paranoia, hanane, eating disorder. 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 He has considered staying in the [place] or going back to [place]. Notes his father had a transportation business but lost his business a couple years ago and went bankrupt, and his mother was able to get him a job but it was temporary and is about to end. He is very worried about his father, his mental and physical health. His mother works as a teacher. He denies having any supports, although he would like to have "love and support," doesn't feel he's met anyone who can provide that. He does have some friends through his lab, but doesn't tell them about his problems. Physical Exam Mental Examination See admission H&P and DOD summary. Vital Signs (Past 24 Hours) Last Vital Signs Temp 36.6 C 11/12/20 06:33 Pulse 101 H 11/12/20 06:33 Resp 18 11/12/20 06:33 BP 129/79 11/12/20 06:33 Pulse Ox 100 11/05/20 14:08 Principal Diagnosis major depressive disorder, first episode, moderate with anxious distress Psychiatric Data See daily stay summary. In short, safety was maintained and the patient was cooperative with care. Medication changes included starting Zoloft and they tolerated this well other than mild diarrhea. A family session was held with parents in [place] and safety plan was completed prior to discharge. Day of Discharge Assessment Today the patient voices readiness for discharge. They note improvement in mood and deny thoughts to harm self or others. Thoughts remain organized and they are improved from admission. There is no evidence of psychosis. They agree to take mediations as prescribed and keep follow-up appointments. They are stable for discharge to outpatient level of care. Transition of Care Transition Of Care Record: was reviewed with the patient Advance Directives Advance Directives Information Provided: Yes Advance Directives: No Mental Health Advance Directive: No Advance Directives on File: No Living Will: No Power of Natural Developer: No Advance Directives Reason:: Declines as Mental Health Visit. Risk Factors Assessment Male: Yes : No Do You Have Access To A Gun?: No Health Problems: No Mental Health Diagnoses: Yes Substance Use Disorders: No Previous Attempt: No Previous Attempt; Highly Lethal: No Family History of Suicide: No Previous Psychiatric Hospitalization: No Hopelessness: Yes Smoker: No Protective Factors Assessment Spiritism Beliefs: No : No Responsible for Young Children: No Employed: No Stable Relationships: No Supportive Family: No Good Rapport with Provider: No (The patient quickly developed a good rapport with the undersigned today.) Absence of Any Risk Factors Above: No Tobacco Cessation at Discharge Tobacco Cessation Medication Prescribed at Discharge: Not Applicable/Non-Smoker Total Time Total Time Spent: Greater Than 30 Minutes Discharge Data Lab Results 11/05/20 11/05/20 11/05/20 14:15 14:27 14:27 Salicylates < 1.7 L Urine Opiates Screen Neg Ur Methadone, Qual Neg Acetaminophen < 2 L Urine Barbiturates Neg Ur Phencyclidine (PCP) Neg U Amphetamin/Meth Scrn Neg MDMA (Ecstasy) Screen Neg U Benzodiazepines Scrn Neg Ur Cocaine Metabolite Neg U Marijuana (THC) Screen Neg Ethyl Alcohol mg/dL < 3.0 COVID-19 Eval Order SARS-CoV-2, RNA, NAAT 11/05/20 11/05/20 15:35 15:35 Salicylates Urine Opiates Screen Ur Methadone, Qual Acetaminophen Urine Barbiturates Ur Phencyclidine (PCP) U Amphetamin/Meth Scrn MDMA (Ecstasy) Screen U Benzodiazepines Scrn Ur Cocaine Metabolite U Marijuana (THC) Screen Ethyl Alcohol mg/dL COVID-19 Eval Order Covid19 [facility] SARS-CoV-2, RNA, NAAT NEGATIVE Hospital Course (1) Suicidal ideation: 11/06 -continue voluntary inpatient treatment, every 15 minute checks for safety, encourage group attendance and participation, work on healthy coping skills and discharge safety plan. -Family meeting with parents scheduled for 11/07/2020. -Coordinate with [facility]. 11/07 -suicidal thoughts worsened after a difficult family meeting. He does feel safe on the unit, and agrees to come to staff if he is having urges to hurt himself. 11/08 - Pt denies SI today, but he continues to be emotionally reactive which increased concern for destabilization - Continue to monitor mood and SI - Will encourage a support meeting and completion of a safety plan 11/09 -The patient continues to say that he is having thoughts of suicide. He notes that he is able to contract for safety in the hospital, but is concerned that he will be safe at the present time if he leaves the hospital because of ongoing depression and ongoing emotional pain associated with issues specific to his relationship with his parents. -The patient needs greater and broader emotional support. It is clear that he finds the hospital to be a source of support, and today's encounter focused largely on how he can see his current situation as a circumscribed, "bedtime," and come to realize, he either intellectually or emotionally, that things will get better and that he will look back on this time and wonder why he reacted in the way he has. 11/10--discussed chronic nature of thoughts and how to manage, need for safety plan and ongoing therapy to help with distress tolerance. (2) Depression: 11/06 - Reviewed diagnoses and treatment recommendations, including antidepressant and therapy. Discussed a trial of sertraline, reviewed risks, benefits, and side effects. He agreed to a trial, started 25mg today and 50mg tomorrow, will titrate to an effective dose. - Family meeting with parents scheduled for tomorrow. - Refer for outpatient treatment. 11/07 -continue sertraline titration, increased to 50 mg daily today. Provide support after a difficult family meeting. Encourage group attendance and participation. Continue to provide psychoeducation about his diagnosis and treatment recommendations. - Discharge planning: Exploring options for outpatient psychiatry and therapy. 11/08 - Titrating sertraline to 100mg daily starting tomorrow morning - continue to have hydroxyzine available as needed for anxiety. - Pt has been reaching out to local supports, attempting to set boundaries with parents - Pt denies SI today, but continues to be rather emotionally reactive 11/09 -Patient complained of feeling depressed today and mentioned that he still does not feel safe to leave the hospital without a recurrence of his suicidal thoughts and active risk of suicidality outside the hospital. However, his affect brightened considerably during today's encounter and he is now more focused on recovery and on his future. For example, he is discussing what sort of marriage he would like and what kind of father he would like to be "down the road." The patient also talks about ways that he might manage the "toxicity" of his relationship with his parents, and he has said is the goal the hope of living in the [facility] and having his career here. -Patient indicates that he is tolerating Zoloft well. 11/10--reviewed (3) Anxiety: 11/06 - Symptoms of JESUS, rule out PTSD. Start SSRI as above, hydroxyzine prn. 11/10--reviewed. Mental Health & Subst Abuse Tx Psychiatrist Name of Psychiatrist: DOMI Alfaro Psychiatrist's Date of Appointment with Psychiatrist: 11/15/20 Time of Appointment with Psychiatrist: 1:15 pm Psychiatric Appointment Comment: Virtual - will email you with directions to the link Therapist Name of Therapist: [facility] Date of Therapist Appointment: 11/13/20 Time of Therapist Appointment: 3:00 p.m. Therapy Appointment Comment: Virtual - will email you with directions to the link Post Discharge Appointments Primary Care Physician Name Of Family Doctor: [facility] Primary Care Time of Appointment with PCP: Please follow up as needed Provider Appointment Comment: [facility] Smoking Cessation Counseling Tobacco Cessation Medication Prescribed at Discharge: Not Applicable/Non-Smoker Contact Information Discharge Discharge Address: [address] [place] [id number] Discharge Plan Discharge Items Patient Disposition: Home - Self-Care Reason For Visit: DEPRESSION Discharge Diagnosis: major depressive disorder Activity: Resume your previous activity Non-emergency contact: Psychiatrist and Therapist Call non-emergency contact if: you have any medication questions and your symptoms worsen Follow-up/Referrals: Kal Dewey [Other] (Scheduled time Thursday, at 3 pm) [facility] [Primary Care Provider] - Diet: Regular Addtl Attending Provider Instructions: SPECIAL CARE INSTRUCTIONS: 1. Follow through with your scheduled aftercare appointments. If unable to keep an appointment, please call to reschedule. 2. Take your medication only as prescribed. Medication should not be changed or stopped without the approval of your doctor. In the event of worsening symptoms or concerns about side effects, contact your doctor immediately. 3. Utilize new healthy coping skills, anger management skills, and stress management skills learned during your hospitalization. Journal feelings and process them with a support person. Identify stressors or situations that may result in relapse, deterioration or inappropriate behaviors and develop a plan to deal with those issues. 4. If your coping skills are ineffective and you are in crisis, contact your outpatient providers for direction. If unable to reach your providers, please call the [facility] CRISIS LINE AT , go to the [facility] walk-in center at [address], [place], or go to the closest Emergency Room. 5. Avoid alcohol and un-prescribed drugs. 6. You have been provided with the Mental Health Advance Directives Pamphlet for your review. AFTERCARE APPOINTMENTS: * Please call your insurance company prior to your scheduled appointment to confirm your aftercare providers are covered. Take your insurance information to your appointments. WHO TO CALL AND WHEN: Medical Emergencies: For questions or emergencies related to your hospital stay, please contact the Inpatient Behavioral Health Unit at [phone]. A office clerk is on-call 13/04 for the Behavioral Health Unit for emergencies At any time you feel your situation is an emergency, you may also call 911 immediately. Pending Studies at Discharge: No Stand-Alone Forms: My [facility] [employer], Smoking Cessation Medications and DC Order Prescriptions: New sertraline 100 mg Tablet 100 mg PO QAM Qty: 30 RF: 0 Continued hydroxyzine pamoate [Vistaril] 25 mg capsule 25 mg PO Q8H PRN (Reason: anxiety) 5 Days Qty: 15 RF: 0 Discontinued lorazepam [Ativan] 0.5 mg tablet 0.5 mg buccal HS PRN (Reason: panic attack(s)) RF: 0 Discharge Orders: Discharge Order (Routine); Ordered 11/12/20 Ordered By: Clotilde Alfaro Admission Data Admit Date/Time: 11/05/20 16:44 Attending Provider: Aisha Stevenson Admit Provider: Aisha Stevenson Primary Care Provider: [facility] Other Interventions: PSY Interdisciplinary Discharge Planning Last Done: 11/12/20 08:40 Coding Level of Care Code 88254 D/C day mgmt > 30 min Diagnoses Suicidal ideation R45.851 Depression F32.9 Depression Type: unspecified Anxiety F41.9
[2020-11-12] MEDS: hydrOXYzine HCl 25 MG TAB PO PRN (09:56)
== END 2020-11-12 10:05 | disposition home or self-care (01) | DRG 885 ==
LOC: ED 14:06 → 3S 16:44